=== PATIENT | male | born 1975 | race Two or more races ===

== ENCOUNTER 2023-09-10 22:23 | Emergency (ER) | payer SELFPAY ==
[~2023-09-10] VITALS: Ht 177.8 cm; Wt 120.0 kg
[2023-09-10] MEDS ORDERED: ROCURONIUM 10MG/ML 10ML VIAL IV ONE (22:26)
[2023-09-10] MEDS ORDERED: ETOMIDATE (2MG/ML) 20ML VIAL IV ONE (22:26)
[2023-09-10] MEDS ORDERED: PROPOFOL 100 ML IV ONE ×2 (22:26→23:37)
[2023-09-10 22:33] VITALS: BP 134/57; PULSE 108; RESP 34; O2SAT 89
[2023-09-10] MEDS ORDERED: PROPOFOL 100 ML IV SCH (23:45)
== END 2023-09-11 01:26 | disposition short-term general hospital (02) ==
LOC: ER 22:23 → EDBD 22:23 → ER 09-11 01:26
DX: S06.2X0A Diffuse traumatic brain injury without loss of consciousness, initial encounter (principal); V89.2XXA Person injured in unspecified motor-vehicle accident, traffic, initial encounter; Y93.89 Activity, other specified; Y92.89 Other specified places as the place of occurrence of the external cause; Y99.8 Other external cause status
CPT/HCPCS: 31500; 36415; 71045; 80320; 99291; J2704